=== PATIENT | male | born 1985 | race Caucasian/White ===

== ENCOUNTER 2019-05-17 14:47 | Emergency (ER) | payer OTHER, SELFPAY ==
--- OUTSIDE RECORDS SUMMARY | 2019-05-17 14:49 | XMS REPORT ---
:1985 [facility] Address [address] [place] [address] [address] Care Team Providers Name Role Phone ANA MARÍA MEJIA Unavailable Unavailable Problems This patient has no known problems. Allergies, Adverse Reactions, Alerts This patient has no known allergies or adverse reactions. Medications This patient has no known medications. Encounters Start End Encounter Admission Attending Care Care Encounter Date/Time Date/Time Type Type Clinicians Facility Department ID 2017-09-27 2017-09-28 Emergency E AJAY MEJIA [facility] [id number] 23:32:00 00:40:00 ANA MARÍA
[2019-05-17] MEDS ORDERED: NA CHLORIDE 0.9% 1,000 ML ONE (15:26)
[2019-05-17 15:36] LABS: Absolute Lymphocytes (CBC) 2.3 K/uL (0.7-4.9); Basophils % 0.4 % (0-1.3); Hematocrit 44.4 % (39.6-49.0); Lymphocytes % 25.4 % (15.3-44.8); MPV 8.3 fL (7.6-11.3); Protime INR 1.06; RBC Red Blood Cell Count 5.06 M/uL (4.33-5.43)
[2019-05-17 15:49] LABS: Urine Blood NEGATIVE (NEG); Urine Glucose NEGATIVE (NEG); Urine Protein TRACE (NEG); Urine Specific Gravity 1.025 (1.005-1.030); Urine pH 5.5 (5.0-7.0)
[2019-05-17 15:55] LABS: Barbiturates NEGATIVE (NEGATIVE); Benzodiazepines POSITIVE (NEGATIVE); Cocaine NEGATIVE (NEGATIVE); METHAMPHETAM POSITIVE (NEGATIVE); Methadone NEGATIVE (NEGATIVE); Opiates NEGATIVE (NEGATIVE); Phencyclidine NEGATIVE (NEGATIVE); THC Cannibis NEGATIVE (NEGATIVE)
[2019-05-17 15:55] LABS: ALT/SGPT 33 U/L (12-78); AST/SGOT 5 U/L (15-37); Albumin 4.3 g/dL (3.4-5.0); Alkaline Phosphatase 78 U/L (45-117); BUN Blood Urea Nitrogen 19 mg/dL (7-18); Bicarbonate 30 mmol/L (21-32); Bilirubin Direct 0.2 mg/dL (0-0.2); Bilirubin Total 0.9 mg/dL (0.2-1.0); Glucose Level 107 mg/dL (74-106); Lipase 78 U/L (73-393); Magnesium 2.1 mg/dL (1.8-2.4); NT PRO-BNP 16 pg/mL (<125); Potassium 3.5 mmol/L (3.5-5.1); Sodium Level 138 mmol/L (136-145); Troponin (Emerg Dept Use Only) < 0.02 ng/mL (0.0-0.045)
--- NOTE | 2019-05-17 16:33 | RAD REPORT ---
EXAM DESCRIPTION: RAD - Chest Single View - 05/17/2019 3:48 pm CLINICAL HISTORY: COUGH Chest pain. COMPARISON: Chest Pa And Lat (2 Views) dated 11/04/2016; Chest Single View dated 10/24/2016 FINDINGS: Portable technique limits examination quality. The lungs are grossly clear. The heart is normal in size. No displaced fractures. IMPRESSION: No acute intrathoracic process suspected.
--- NOTE | 2019-05-17 17:02 | EDPHYS ---
Physician Documentation [facility] Name: Leon Cordero Age: 34 yrs Sex: Male : 1985 Arrival Date: 05/17/2019 Time: 14:54 Bed 27 Private MD: ED Physician Odell Beckman HPI: 05/17 16:58 This 34 yrs old Male presents to ER via [employer] with complaints of ally WEAK AND DIZZY. 16:58 WEAK, DIZZY. The patient presents with dizziness, generalized weakness. Onset: The ally symptoms/episode began/occurred just prior to arrival. Context: occurred outdoors, at a park, occurred while the patient was working. Modifying factors: The symptoms are alleviated by nothing, the symptoms are aggravated by standing up. Associated signs and symptoms: The patient has no apparent associated signs or symptoms. Severity of symptoms: At their worst the symptoms were. Patient's baseline: Neuro: alert and fully oriented, Motor: no deficits. Historical: - Allergies: 14:58 No Known Allergies; rv - Home Meds: 14:58 albuterol sulfate 90 mcg/actuation Inhl HFAA every 4 hours for Acute Asthma Attack rv [Active]; - PMHx: 14:58 Asthma; heart atack; rv - PSHx: 14:58 None; rv - Immunization history:: Adult Immunizations unknown. - Social history:: Smoking status: Patient uses tobacco products, smokes one-half pack cigarettes per day. - Ebola Screening: : No symptoms or risks identified at this time. - Family history:: not pertinent. ROS: 16:58 Constitutional: Negative for fever, chills, and weight loss, Eyes: Negative for injury, ally pain, redness, and discharge, ENT: Negative for injury, pain, and discharge, Neck: Negative for injury, pain, and swelling, Cardiovascular: Negative for chest pain, palpitations, and edema, Respiratory: Negative for shortness of breath, cough, wheezing, and pleuritic chest pain, Abdomen/GI: Negative for abdominal pain, nausea, vomiting, diarrhea, and constipation, Back: Negative for injury and pain, : Negative for injury, bleeding, discharge, and swelling, MS/Extremity: Negative for injury and deformity, Skin: Negative for injury, rash, and discoloration, Psych: Negative for depression, anxiety, suicide ideation, homicidal ideation, and hallucinations, Allergy/Immunology: Negative for hives, rash, and allergies, Endocrine: Negative for neck swelling, polydipsia, polyuria, polyphagia, and marked weight changes, Hematologic/Lymphatic: Negative for swollen nodes, abnormal bleeding, and unusual bruising. 16:58 Neuro: Positive for dizziness, weakness. Exam: 16:58 Constitutional: This is a well developed, well nourished patient who is awake, alert, ally and in no acute distress. Head/Face: Normocephalic, atraumatic. Eyes: Pupils equal round and reactive to light, extra-ocular motions intact. Lids and lashes normal. Conjunctiva and sclera are non-icteric and not injected. Cornea within normal limits. Periorbital areas with no swelling, redness, or edema. ENT: Nares patent. No nasal discharge, no septal abnormalities noted. Tympanic membranes are normal and external auditory canals are clear. Oropharynx with no redness, swelling, or masses, exudates, or evidence of obstruction, uvula midline. Mucous membranes moist. Neck: Trachea midline, no thyromegaly or masses palpated, and no cervical lymphadenopathy. Supple, full range of motion without nuchal rigidity, or vertebral point tenderness. No Meningismus. Chest/axilla: Normal chest wall appearance and motion. Nontender with no deformity. No lesions are appreciated. Cardiovascular: Regular rate and rhythm with a normal S1 and S2. No gallops, murmurs, or rubs. Normal PMI, no JVD. No pulse deficits. Respiratory: Lungs have equal breath sounds bilaterally, clear to auscultation and percussion. No rales, rhonchi or wheezes noted. No increased work of breathing, no retractions or nasal flaring. Abdomen/GI: Soft, non-tender, with normal bowel sounds. No distension or tympany. No guarding or rebound. No evidence of tenderness throughout. Back: No spinal tenderness. No costovertebral tenderness. Full range of motion. Male : Normal genitalia with no discharge or lesions. Skin: Warm, dry with normal turgor. Normal color with no rashes, no lesions, and no evidence of cellulitis. MS/ Extremity: Pulses equal, no cyanosis. Neurovascular intact. Full, normal range of motion. Neuro: Awake and alert, GCS 15, oriented to person, place, time, and situation. Cranial nerves II-XII grossly intact. Motor strength 5/5 in all extremities. Sensory grossly intact. Cerebellar exam normal. Normal gait. Psych: Awake, alert, with orientation to person, place and time. Behavior, mood, and affect are within normal limits. 16:58 Musculoskeletal/extremity: DVT Exam: No signs of deep vein thrombosis. no pain, no swelling, no tenderness, negative Homans' sign noted on exam, no appreciated bluish discoloration, no erythema, no increased warmth. Vital Signs: 14:56 BP 134 / 97; Pulse 96; Resp 20; Temp 98.8; Pulse Ox 98% on R/A; Weight 90.72 kg; rv 15:15 BP 147 / 88; Pulse 98; Resp 16; Pulse Ox 99% on R/A; rv 15:30 BP 142 / 97; Pulse 98; Resp 16; Pulse Ox 100% on R/A; rv 15:45 BP 138 / 92; Pulse 99; Resp 17; Pulse Ox 100% ; rv 16:00 BP 143 / 90; Pulse 94; Resp 17; Pulse Ox 100% on R/A; rv 17:00 BP 138 / 95; Pulse 91; Resp 15; Pulse Ox 100% on R/A; rv MDM: 14:55 Patient medically screened. [facility] 17:01 Data reviewed: vital signs, nurses notes, lab test result(s), EKG, radiologic studies, [facility] CT scan, plain films. 05/17 14:56 Order name: Basic Metabolic Panel [facility] 05/17 14:56 Order name: CBC with Diff 05/17 14:56 Order name: LFT's [facility] 05/17 14:56 Order name: Magnesium [facility] 05/17 14:56 Order name: NT PRO-BNP; Complete Time: 16:58 [facility] 05/17 14:56 Order name: PT-INR; Complete Time: 16:58 [facility] 05/17 14:56 Order name: Troponin (emerg Dept Use Only); Complete Time: 16:58 [facility] 05/17 14:56 Order name: Acetaminophen; Complete Time: 16:58 [facility] 05/17 14:56 Order name: ETOH Level; Complete Time: 16:58 [facility] 05/17 14:56 Order name: Ptt, Activated; Complete Time: 16:58 [facility] 05/17 14:56 Order name: Salicylate; Complete Time: 16:58 [facility] 05/17 14:56 Order name: Urine Drug Screen; Complete Time: 16:58 [facility] 05/17 14:56 Order name: Lipase; Complete Time: 16:58 [facility] 05/17 14:57 Order name: Basic Metabolic Panel; Complete Time: 16:58 EDMS 05/17 14:56 Order name: XRAY Chest (1 view); Complete Time: 16:58 [facility] 05/17 14:56 Order name: EKG; Complete Time: 14:59 [facility] 05/17 14:56 Order name: Cardiac monitoring; Complete Time: 15:23 [facility] 05/17 14:56 Order name: EKG - Nurse/Tech; Complete Time: 15:48 [facility] 05/17 14:56 Order name: IV Saline Lock; Complete Time: 15:23 [facility] 05/17 14:56 Order name: Labs collected and sent; Complete Time: 15:23 [facility] 05/17 14:56 Order name: O2 Per Protocol; Complete Time: 15:24 [facility] 05/17 14:56 Order name: O2 Sat Monitoring; Complete Time: 15:24 [facility] 05/17 14:56 Order name: Urine Dipstick-Ancillary (obtain specimen); Complete Time: 15:48 [facility] 05/17 14:57 Order name: CBC with Automated Diff; Complete Time: 16:58 EDMS 05/17 14:57 Order name: Liver (Hepatic) Function; Complete Time: 16:58 EDMS 05/17 14:57 Order name: Magnesium; Complete Time: 16:58 EDWV 05/17 15:40 Order name: Urine Dipstick--Ancillary (enter results); Complete Time: 16:58 ms Administered Medications: 15:20 Drug: NS 0.9% 1000 ml Route: IV; Rate: 1 bolus; Site: right antecubital; rv Disposition: 05/17/19 17:02 Discharged to Home. Impression: Dizziness and giddiness, Weakness. - Condition is Stable. - Discharge Instructions: Dizziness, Near-Syncope, Weakness, Near-Syncope, [id number], Weakness, [id number], Aspirin and Your Heart, Dizziness, [id number]. - Medication Reconciliation Form, Thank You Letter, Antibiotic Education, Prescription Opioid Use form. - Follow up: Private Physician; When: 2 - 3 days; Reason: Recheck today's complaints, Continuance of care, Re-evaluation by your physician. - Problem is new. - Symptoms have improved. Signatures: Dispatcher [employer] Odell Pérez MD MD cha Vicente, Ronaldo RN RN rv Corrections: (The following items were deleted from the chart) 17:43 17:02 05/17/2019 17:02 Discharged to Home. Impression: Dizziness and giddiness; rv Weakness. Condition is Stable. Forms are Medication Reconciliation Form, Thank You Letter, Antibiotic Education, Prescription Opioid Use. Follow up: Private Physician; When: 2 - 3 days; Reason: Recheck today's complaints, Continuance of care, Re-evaluation by your physician. Problem is new. Symptoms have improved. ally
--- NOTE | 2019-05-17 17:02 | ER ---
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 suddenly he felt lightheaded and weak. initial blood pressure is 155/108 and HR at 141. blood sugar is 129. no medical history. Transition of care: patient was not received from another setting of care. Onset of symptoms was May 17, 2019 at 14:00. Risk Assessment: Do you want to hurt yourself or someone else? Patient reports no desire to harm self or others. Initial Sepsis Screen: Does the patient meet any 2 criteria? No. Patient's initial sepsis screen is negative. Does the patient have a suspected source of infection? No. Patient's initial sepsis screen is negative. Care prior to arrival: None. 14:54 Method Of Arrival: Law Enforcement: [employer] rv 14:54 Acuity: SHARMIN 4 rv Historical: - Allergies: 14:58 No Known Allergies; rv - Home Meds: 14:58 albuterol sulfate 90 mcg/actuation Inhl HFAA every 4 hours for Acute Asthma Attack rv [Active]; - PMHx: 14:58 Asthma; heart atack; rv - PSHx: 14:58 None; rv - Immunization history:: Adult Immunizations unknown. - Social history:: Smoking status: Patient uses tobacco products, smokes one-half pack cigarettes per day. - Ebola Screening: : No symptoms or risks identified at this time. - Family history:: not pertinent. Screenin:11 Abuse screen: Denies threats or abuse. Denies injuries from another. Nutritional rv screening: No deficits noted. Tuberculosis screening: No symptoms or risk factors identified. Fall Risk None identified. Assessment: 16:11 General: Appears in no apparent distress. comfortable, Behavior is calm, cooperative. rv Pain: Denies pain. Neuro: Level of Consciousness is awake, alert, obeys commands, Oriented to person, place, time, situation. Cardiovascular: Patient's skin is warm and dry. Cardiovascular: Rhythm is regular. Respiratory: Airway is patent. GI: No signs and/or symptoms were reported involving the gastrointestinal system. : No signs and/or symptoms were reported regarding the genitourinary system. EENT: No signs and/or symptoms were reported regarding the EENT system. Derm: Skin is intact. Vital Signs: 14:56 BP 134 / 97; Pulse 96; Resp 20; Temp 98.8; Pulse Ox 98% on R/A; Weight 90.72 kg; rv 15:15 BP 147 / 88; Pulse 98; Resp 16; Pulse Ox 99% on R/A; rv 15:30 BP 142 / 97; Pulse 98; Resp 16; Pulse Ox 100% on R/A; rv 15:45 BP 138 / 92; Pulse 99; Resp 17; Pulse Ox 100% ; rv 16:00 BP 143 / 90; Pulse 94; Resp 17; Pulse Ox 100% on R/A; rv 17:00 BP 138 / 95; Pulse 91; Resp 15; Pulse Ox 100% on R/A; rv ED Course: 14:54 Patient arrived in ED. rv 14:55 Odell Beckman MD is Attending Physician. ally 14:56 Triage completed. rv 15:23 Lane Hernandez, GEE is Primary Nurse. rv 15:50 XRAY Chest (1 view) In Process Unspecified. EDMS 16:12 Arm band placed on left wrist. rv 16:12 Patient has correct armband on for positive identification. Bed in low position. Call rv light in reach. Side rails up X 1. quality assurance monitor on. Pulse ox on. NIBP on. 17:43 No provider procedures requiring assistance completed. Patient did not have IV access rv during this emergency room visit. Administered Medications: 15:20 Drug: NS 0.9% 1000 ml Route: IV; Rate: 1 bolus; Site: right antecubital; rv Outcome: 17:02 Discharge ordered by . ally 17:43 Discharged to home ambulatory. rv 17:43 Condition: good 17:43 Discharge instructions given to patient, Instructed on discharge instructions, follow up and referral plans. Demonstrated understanding of instructions, follow-up care. 17:43 Patient left the ED. rv Signatures: Dispatcher [employer] EDMS Odell Beckman MD MD cha Vicente, Ronaldo, RN RN rv
[2019-05-17 19:39] VITALS: TEMP 98.8
[2019-05-17 19:43] VITALS: O2SAT 100
[2019-05-17 19:52] VITALS: BP 138/95
--- NOTE | 2019-05-18 16:24 | EKG ---
Test Date: 2019-05-17 Test Time: 15:41:25 Patient Coordinator Front Desk: RV MEASUREMENT RESULTS: Intervals: Rate: 80 CT: 136 QRSD: 110 QT: 356 QTc: 410 [place]: P: 67 CT: 136 QRS: 103 T: 3 INTERPRETIVE STATEMENTS: Normal sinus rhythm Rightward axis Incomplete right bundle branch block Borderline ECG Compared to ECG 11/04/2016 20:53:32 Sinus arrhythmia no longer present Electronically Signed On 05-18-19 16:22:37 LUMP [employer] by Scot Scott
== END 2019-05-17 17:43 | disposition home or self-care (01) ==
LOC: ER 14:47
DX: R53.1 Weakness (principal); R42 Dizziness and giddiness; J45.909 Unspecified asthma, uncomplicated; F17.210 Nicotine dependence, cigarettes, uncomplicated
CPT/HCPCS: 36415; 71045; 80048; 80076; 80307; 80320; 80329; 81003; 83690; 83735; 83880; 84484; 85025; 85610; 85730; 93005; 99284; J7030

== ENCOUNTER 2022-11-11 20:18 | Emergency (ER) | payer OTHER, SELFPAY ==
--- OUTSIDE RECORDS SUMMARY | 2022-11-11 20:22 | XMS REPORT | Continuity of Care Document ---
:1985 Author Organization [facility] t Address [address] [facility] [address] [place] [address] Care Team Providers Name Role Phone Arti Mervat OROPEZA Attending Clinician Doctor Unassigned, [place] Attending Clinician Unavailable ROSS DEGROOT Attending Clinician Unavailable LUPE TOPETE Attending Clinician Unavailable Gomez Barrett Attending Clinician ANA MARÍA MEJIA Attending Clinician Unavailable ANA MARÍA MEJIA Admitting Clinician Unavailable Problems Condition Condition Condition Status Onset Resolution Last Treating Co mments Source Name Details Category Date Date Treatment Clinician Date Moderate Moderate Disease Active Unive rs asthma asthma 02-06 ity of with with 00:00: [place] exacerbati exacerbati 00 Me dical on, on, Branch unspecifie unspecifie d whether d whether persistent persistent Upper Upper Disease Active [facility] respirator respirator 02-06 it y of y tract y tract 00:00: [place] infection, infection, 00 Me dical unspecifie unspecifie Br anch d type d type Allergies, Adverse Reactions, Alerts Allergy Allergy Status Severity Reaction(s) Onset Inactive Treating Comm ents Source Name Type Date Date Clinician NO KNOWN Drug Active Univers ALLERGIE Class ity of S [facility] Social History Social Habit Start Date Stop Date Quantity Comments Source Exposure to Not sure [facility] SARS-CoV-2 (event) Medica l Branch Sex Assigned At [birth year] [facility] 00:00:00 00:00:00 Medical Branch Smoking Status Start Date Stop Date Source Unknown if ever smoked [facility] Medications Ordered Filled Start Stop Current Ordering Indication Dosage Frequency Signature Comments Components Source Medication Medication Date Date Medication? Clinician (SIG) Name Name loperamide No 4mg 4 mg, Unive rs (IMODIUM 01-04 Oral, ity of A-D) 01:30: 00:44 ONCE, 1 [place] capsule 4 00 :00 dose, Mon Medic al mg 01/03/21 at Branch 2029, Routine ketorolac 2020- No 30mg 30 mg, Unive rs (TORADOL) 01-04 Slow IV ity of injection 01:30: 00:44 Push, [place] 30 mg 00 :00 ONCE, 1 Medical dose, [facility] Branch 01/03/21 at 2030, SHARLENE
Fa culty member approving Restricted medication : Mervat GUZMAN ondansetron No 4mg 4 mg, Slow Univers (ZOFRAN 01-04 IV Push, ity of (PF)) 01:30: 00:44 ONCE, 1 [place] injection 4 00 :00 dose, Mon Med ical mg 01/03/21 at Branch 2029, SHARLENE NaCl 0.9% 2020- No 1000mL at 999 Uni vers (NS) bolus 01-04 mL/hr, ity of infusion 01:00: 01:00 1,000 mL, Jimi as 1,000 mL 00 :00 IV Medical Infusion, [place] ONCE, 1 dose, [facility] 01/03/21 at 2000, STAT ibuprofen Yes [id number] 600mg Take 1 Univers 600 mg 8-02 tablet by ity of tablet 00:00: mouth [place] 00 every 6 Medical (six) Branch hours as needed for Pain (scale 4-6). benzonatate Yes [id number] 100mg Take 1 Univers 100 mg 8-02 capsule by ity of capsule 00:00: mouth 3 [place] 00 (three) Medical times Branch daily as needed for Cough. ondansetron 0 Yes [id number] 4mg Take 1 Univers (ZOFRAN 8-02 tablet by ity of ODT) 4 mg 00:00: mouth [place] disintegrat 00 every 8 Medic al ing tablet (eight) Branch hours as needed for Nausea and Vomiting (N/V). ciprofloxac 2020- No 3[drp] 3 Drop, Univers in-hydrocor 12-12 Right Ear, i ty of tisone 02:30: 02:10 ONCE, 1 [place] (CIPRO HC 00 :00 dose, Sat Medic al OTIC) otic 12/11/20 at [facility] suspension 2130, 3 Drop Routine ciprofloxac 2020- No [id number] 3[drp] Place 3 Univers in-hydrocor 12-1118 [id number] Drops in i ty of tisone 00:00: 04:59 right ear [place] (CIPRO HC) 00 :00 2 (two) Medica l otic times Branch suspension daily for 7 days. albuterol Yes [id number] 2.5mg Inhale 3 Univers 2.5 mg /3 5-31 mL every 4 ity of mL (0.083 00:00: (four) [place] %) 00 hours. May Medical nebulizer also Branch solution nebulize one extra every 6 hours. albuterol Yes [id number] 2{puff} Inhale 2 Univers 90 5-31 Puffs ity of mcg/actuati 00:00: every 4 Jimi as on inhaler 00 (four) Medical hours as Branch needed for Wheezing or Shortness of Breath. benzonatate Yes [id number] 200mg Take 1 Univers 200 mg 5-31 capsule by ity of capsule 00:00: mouth 3 [place] 00 (three) Medical times Branch daily as needed for Cough. predniSONE Yes [id number] 50mg Take 1 Univers 50 mg 5-31 tablet by ity of tablet 00:00: mouth [place] 00 daily. Medical Branch albuterol Yes [id number] 2.5mg Inhale 3 Univers 2.5 mg /3 5-31 mL every 4 ity of mL (0.083 00:00: (four) [place] %) 00 hours. May Medical nebulizer also Branch solution nebulize one extra every 6 hours. albuterol Yes [id number] 2{puff} Inhale 2 Univers 90 5-31 Puffs ity of mcg/actuati 00:00: every 4 [place] as on inhaler 00 (four) Medical hours as Branch needed for Wheezing or Shortness of Breath. benzonatate Yes [id number] 200mg Take 1 Univers 200 mg 5-31 capsule by ity of capsule 00:00: mouth 3 [place] 00 (three) Medical times Branch daily as needed for Cough. predniSONE Yes [id number] 50mg Take 1 Univers 50 mg 5-31 tablet by ity of tablet 00:00: mouth [place] 00 daily. Medical Branch albuterol Yes [id number] 2.5mg Inhale 3 Univers 2.5 mg /3 5-31 mL every 4 ity of mL (0.083 00:00: (four) [place] %) 00 hours. May Medical nebulizer also Branch solution nebulize one extra every 6 hours. albuterol Yes [id number] 2{puff} Inhale 2 Univers 90 5-31 Puffs ity of mcg/actuati 00:00: every 4 Jim[place] as on inhaler 00 (four) Medical hours as Branch needed for Wheezing or Shortness of Breath. predniSONE Yes [id number] 50mg Take 1 Univers 50 mg 5-31 tablet by ity of tablet 00:00: mouth [place] 00 daily. Medical Branch benzonatate 2020- No [id number] 200mg Take 1 Univers 200 mg 5-31 08-02 capsule by ity of capsule 00:00: 00:00 mouth 3 [place] 00 :00 (three) Medical times Branch daily as needed for Cough. albuterol Yes [id number] 2{puff} Inhale 2 Univers 90 5-13 Puffs ity of mcg/actuati 00:00: every 4 Jimi as on inhaler 00 (four) Medical hours as Branch needed for Wheezing or Shortness of Breath. albuterol Yes [id number] 2.5mg Inhale 3 Univers 2.5 mg /3 5-13 mL every 4 ity of mL (0.083 00:00: (four) [place] %) 00 hours as Medical nebulizer needed for Bran ch solution Wheezing or Shortness of Breath. May also nebulize one extra every 6 hours. albuterol Yes [id number] 2{puff} Inhale 2 Univers 90 5-13 Puffs ity of mcg/actuati 00:00: every 4 Jimi as on inhaler 00 (four) Medical hours as Branch needed for Wheezing or Shortness of Breath. albuterol Yes [id number] 2.5mg Inhale 3 Univers 2.5 mg /3 5-13 mL every 4 ity of mL (0.083 00:00: (four) [place] %) 00 hours as Medical nebulizer needed for Bran ch solution Wheezing or Shortness of Breath. May also nebulize one extra every 6 hours. albuterol 2018-0 Yes [id number] 2{puff} Inhale 2 Univers 90 5-13 Puffs ity of mcg/actuati 00:00: every 4 Jimi as on inhaler 00 (four) Medical hours as Branch needed for Wheezing or Shortness of Breath. albuterol 2018-0 Yes [id number] 2.5mg Inhale 3 Univers 2.5 mg /3 5-13 mL every 4 ity of mL (0.083 00:00: (four) [place] %) 00 hours as Medical nebulizer needed for Bran ch solution Wheezing or Shortness of Breath. May also nebulize one extra every 6 hours. albuterol 2017-0 Yes 2.5mg Inhale 3 Uni vers 2.5 mg /3 9-05 mL every 4 ity of mL (0.083 00:00: (four) [place] %) 00 hours as Medical nebulizer needed for Bran ch solution Wheezing or Shortness of Breath. albuterol 2017-0 Yes 2.5mg Inhale 3 Uni vers 2.5 mg /3 9-05 mL every 4 ity of mL (0.083 00:00: (four) [place] %) 00 hours as Medical nebulizer needed for Bran ch solution Wheezing or Shortness of Breath. albuterol 0 Yes 2.5mg Inhale 3 Uni vers 2.5 mg /3 9-05 mL every 4 ity of mL (0.083 00:00: (four) [place] %) 00 hours as Medical nebulizer needed for Bran ch solution Wheezing or Shortness of Breath. Vital Signs Vital Name Observation Time Observation Value Comments Source Oxygen saturation in 2021-01-04 00:50:00 95 /min [facility] Arterial blood by [facility] Pulse oximetry Branch Systolic blood 2021-01-04 00:50:00 130 mm[Hg] Univer sity of pressure [facility] Diastolic blood 2021-01-04 00:50:00 83 mm[facility]Hg] [facility] Heart rate 2021-01-04 00:50:00 71 /min Universi ty [facility] Body temperature 2021-01-04 00:50:00 37.17 [place] [facility] Respiratory rate 2021-01-04 00:50:00 12 /min [facility] Body weight 2021-01-03 22:44:00 79.379 kg Universi ty [facility] BMI 2021-01-03 22:44:00 27.41 kg/m2 Universi ty [facility] Systolic blood 2020-12-12 02:00:00 139 mm[Hg] Univer sity of [facility] Diastolic blood 2020-12-12 02:00:00 87 mm[Hg] Unive rsity of [facility] Heart rate 2020-12-12 02:00:00 80 /min [facility] Body temperature 2020-12-12 02:00:00 37.11 [place] [facility] Respiratory rate 2020-12-12 02:00:00 15 /min [facility] Oxygen saturation in 2020-12-12 02:00:00 98 /min [facility] Arterial blood by [facility] Pulse oximetry Branch Body weight 2020-12-12 00:29:00 79.379 kg [facility] BMI 2020-12-12 00:29:00 27.41 kg/m2 [facility] Procedures Procedure Date / Time Performed Performing Clinician Sourc e LIPASE 2021-01-03 23:50:00 Mervat Guzman [facility] o f [facility] COMP. METABOLIC PANEL 2021-01-03 23:50:[address] [facility] ([id number]) Medical [place] CBC WITH DIFF 2021-01-03 23:50:00 Mervat Guzman [facility] o f [facility] NOTICE OF PRIVACY 2021-01-03 22:40:16 Doctor Unassigned, No [facility] Name Medical Branch CONSENT/REFUSAL FOR 2021-01-03 22:39:56 Doctor Unassigned, No [facility] AND Name Medical Branch TREATMENT COVID-19 (ID NOW 2020-12-12 01:21:00 Gomez Reyes [facility] RAPID TESTING) Medical Branch Encounters Start End Encounter Admission Attending Care Care Encounter Source Date/Time Date/Time Type Type Clinicians Facility Department ID 2021-04-[address] [facility] [id number] Univers 12:35:38 ity [facility] 2022-11-02 2022-11-02 Outpatient SFA SFA [id number] Srinath 17:28:41 17:28:41 0601 F Emmons 2022-10-05 2022-10-05 Outpatient SFA SFA [id number] Srinath 17:09:06 17:09:06 0504 F Emmons 2022-08-31 2022-08-31 Outpatient SFA SFA [id number] Srinath 17:42:00 17:42:00 0330 [facility] 2022-08-09 2022-08-09 Outpatient SFA SFA [id number] Srinath 17:32:23 17:32:23 0308 F Emmons 2022-07-12 2022-07-12 Outpatient SFA SFA [id number] Srinath 17:46:55 17:46:55 0208 [facility] 2022-06-12 2022-06-12 Outpatient SFA SFA [id number] Srinath 17:24:02 17:24:02 0109 [facility] 2022-05-12 2022-05-12 Outpatient SFA SFA [id number] Srinath 15:20:41 15:20:41 1209 [facility] 2022-04-11 2022-04-11 Outpatient SFA SFA [id number] Srinath 15:55:41 15:55:41 1108 [facility] 2022-03-09 2022-03-09 Outpatient SFA SFA [id number] Srinath 16:16:28 16:16:28 1006 F Emmons 2021-01-03 2021-01-03 Emergency Mervat Guzman [facility] [id number] Univers 17:45:00 20:02:00 Emy Paz 350.1.13.10 i Toby 4.2.7.2.686 [facility] [id number] [facility] 084 Branch 2021-01-03 2021-01-03 Orders Doctor SANABRIA [id number] Univers 00:00:00 00:00:00 Only Unassigned, CORY 350.1.13.10 ity of [place] [facility] 4.2.7.2.686 Jimi [id number] [facility] 009 Branch 2020-12-16 2020-12-16 Outpatient R ZANE, [facility] [id number] Univers 15:45:00 15:45:00 ROSS ity [facility] 2020-12-15 2020-12-15 Outpatient R EFREM, [facility] [id number] Univers 15:15:00 15:15:00 [facility] 2020-12[facility]11 2020-12-11 Emergency Amy, [facility] [id number] Univers 19:27:00 21:50:00 Gomez Paz 350.1.13.10 i ty of [place] 4.2.7.2.686 [place] [id number] [facility] 084 Branch 2020-12-11 2020-12-11 Emergency X [facility] ERT [id number] Univers 19:20:00 19:20:00 [facility] 2017-09-27 2017-09-28 Emergency E MEJIA, [facility] [id number] [place] 23:32:00 00:40:00 ANA MARÍA [facility] Results Test Description Test Time Test Comments Results Result Comments Source CBC WITH DIFF 2021-01-04 01:02:22 Test Item Value Reference Range Interpretation Comme nts WBC (test code = 6690-2) See_Comment [A utomated message] The system which ge nerated this result transmit tay reference range: 4.20 - 1 0.70 10*3/?L. The reference r herb was not used to interpr et this result as normal/abnor mal. RBC (test code = 789-8) See_Comment [Au tomated message] The system which Navmii nerated this result transmit tay reference range: 4.26 - 5 .52 10*6/?L. The reference r herb was not used to interpr et this result as normal/abnor mal. HGB (test code = 718-7) 14.3 g/dL 12.2-16.4 HCT (test code = 4544-3) 43.1 % 38.4-49.3 MCV (test code = 787-2) 85.9 fL 81.7-95.6 MCH (test code = 785-6) 28.5 pg 26.1-32.7 MCHC (test code = 786-4) 33.2 g/dL 31.2-35.0 RDW-SD (test code = 09241-0) 40.1 fL 38.5-51.6 RDW-CV (test code = 788-0) 12.9 % 12.1-15.4 PLT (test code = 777-3) See_Comment H [Au tomated message] The system which ge nerated this result transmit tay reference range: 150 - 32 8 10*3/?L. The reference range was not used to interpret th is result as normal/abnormal . MPV (test code = 81641-8) 9.5 fL 9.8-13.0 L NRBC/100 WBC (test code = See_Comment [ Automated message] The 7589495502) system which ge nerated this result transmit tay reference range: 0.0 - 10 .0 /100 WBCs. The reference r herb was not used to interpr et this result as normal/abnor mal. NRBC x10^3 (test code = <0.01 See_Comment [Au tomated message] The 0097144991) system which ge nerated this result transmit tay reference range: 10*3/?L. The reference range was not u sed to interpret this result as normal/abnormal . GRAN MAT (NEUT) % (test code 49.9 % = 770-8) IMM GRAN % (test code = 0.40 % 0451896827) LYMPH % (test code = 736-9) 33.8 % MONO % (test code = 5905-5) 13.1 % EOS % (test code = 713-8) 2.4 % BASO % (test code = 706-2) 0.4 % GRAN MAT x10^3(ANC) (test 3.38 10*3/uL 1.99-6.95 code = 7405470429) IMM GRAN x10^3 (test code = 0.03 10*3/uL 0.00-0.06 2287577421) LYMPH x10^3 (test code = 2.29 10*3/uL 1.09-3.23 731-0) MONO x10^3 (test code = 0.89 10*3/uL 0.36-1.02 742-7) EOS x10^3 (test code = 0.16 10*3/uL 0.06-0.53 711-2) BASO x10^3 (test code = 0.03 10*3/uL 0.01-0.09 704-7) Lab Interpretation (test Abnormal code = 33225-4) [facility] (66227)2021-01-04 00:13:15 Test Item Value Reference Range Interpretation Comments NA (test code = 142 mmol/L 135-145 1857540415) K (test code = 3.9 mmol/L 3.5-5.0 3079930632) CL (test code = 104 mmol/L 98-108 2101524901) CO2 TOTAL (test code 28 mmol/L 23-31 = 4775614249) AGAP (test code = 2-16 2419000934) BUN (test code = 9 mg/dL 7-23 4128659100) GLUCOSE (test code = 95 mg/dL 70-110 3599479994) CREATININE (test code 0.73 mg/dL 0.60-1.25 = 9599818907) TOTAL BILI (test code 0.4 mg/dL 0.1-1.1 = 6578765300) CALCIUM (test code = 9.9 mg/dL 8.6-10.6 5794828044) T PROTEIN (test code 8.2 g/dL 6.3-8.2 = 9795793519) ALBUMIN (test code = 4.5 g/dL 3.5-5.0 7690426539) ALK PHOS (test code = 72 U/L 34-122 8662399961) ALTv (test code = 13 U/L 5-50 1742-6) AST(SGOT) (test code 19 U/L 13-40 = 6373091568) eGFR (test code = mL/min/1.73m2 0257472095) HARPREET (test code = HARPREET) Association of Glomerular Filtration Rate (GFR) and Staging of Kidney Disease* + + +- +| GFR (mL/min/1.73 m2) ?| With Kidney Damage ?| ?Without Kidney Damage+ ------+ ----+ ------+| ?>90 ?| ?Stage one ?| ? Normal ?+ -+ + -+| ?60-89 ?| ?Stage two ?| ? Decreased GFR ? + + +- +| ?30-59 ?| ?Stage three ?| ? Stage three ? + + +- +| ?15-29 ?| ?Stage four ? | ? Stage four ?+ -+ + -+| ?<15 (or dialysis) ? ?| ?Stage five ? | ? Stage five ?+ -+ + -+ *Each stage assumes the associated GFR level has been in effect for at least three months. ?Stages 1 to 5, with or without kidney disease, indicate chronic kidney disease. Notes: Determination of stages one and two (with eGFR >59mL/min/1.73 m2) requires estimation of kidney damage for at least three months as defined by structural or functional abnormalities of the kidney, manifested by either:Pathological abnormalities or Markers of kidney damage (including abnormalities in the composition of the blood or urine or abnormalities in imaging tests). [facility] 00:12:51 Test Item Value Reference Range Interpretation Comments LIPASE (test code = 6836679401) 32 U/L 0-220 Lab Interpretation (test code = Normal 95716-2) [facility] (ID NOW RAPID TESTING)2020-12-12 02:03:19 Test Item Value Reference Range Interpretation Comments SARS-CoV-2 Rapid ID NOW Not Detected Not Detected (test code = 28928-4) HARPREET (test code = HARPREET) ID NOW COVID-19 Assay is an isothermal nucleic acid amplification test intended for the qualitative detection of nucleic acid from SARS-CoV-2 viral RNA in nasopharyngeal (BREAD PACKER) specimens. It is used under Emergency Use Authorization (EUA) by FDA. The limit of detection (LOD) of the assay is 125 Genome Equivalents/mL. A positive result is indicative of the presence of SARS-CoV-2 RNA. ?Clinical correlation with patient history and other diagnostic information is necessary to determine patient infection status. A negative (Not Detected) result does not preclude SARS-CoV-2 infection. In patients with clinical symptoms and other tests that are consistent with SARS-CoV-2 infection, negative results should be treated as presumptive negative and a new specimen should be tested with alternative PCR molecular test. Invalid: Please collect a new specimen for repeat patient testing if clinically indicated. Lab Interpretation Normal (test code = 86241-7) [facility]"
[2022-11-11] MEDS ORDERED: TETANUS & DIPHTHERIA TOX,ADULT 0.5 ML VIAL ONE (21:36)
[2022-11-11] MEDS ORDERED: LIDOCAINE 2% MPF 5 ML VIAL ONE (21:36)
--- NOTE | 2022-11-11 22:19 | ER ---
Nurse's Notes [facility] Name: Leon Cordero Age: 37 yrs Sex: Male : 1985 Arrival Date: 11/11/2022 Time: 20:18 Bed 6 Private MD: Diagnosis: Laceration without foreign body of finger without damage to nail Presentation: 11/11 20:41 Chief complaint: Patient states: i was cutting kirk with a razor blade and it lg3 slipped and got my left thumb. Coronavirus screen: Client denies travel out of the [place] in the last 14 days. At this time, the client does not indicate any symptoms associated with coronavirus-19. Ebola Screen: No symptoms or risks identified at this time. Initial Sepsis Screen: Does the patient meet any 2 criteria? No. Patient's initial sepsis screen is negative. Does the patient have a suspected source of infection? No. Patient's initial sepsis screen is negative. Risk Assessment: Do you want to hurt yourself or someone else? Patient reports no desire to harm self or others. Onset of symptoms was November 11, 2022. 20:41 Method Of Arrival: Ambulatory lg3 20:41 Acuity: SHARMIN 4 lg3 Triage Assessment: 20:46 General: Appears in no apparent distress. comfortable, Behavior is calm, cooperative. lg3 Pain: Complains of pain in left thumb. EENT: No deficits noted. No signs and/or symptoms were reported regarding the EENT system. Neuro: No deficits noted. Logan Agitation-Sedation Scale (RASS): 0 - Alert and Calm Level of Consciousness is awake, alert, obeys commands, Oriented to person, place, time, situation, Ear Machine Operator are equal bilaterally. Cardiovascular: No deficits noted. Denies chest pain, shortness of breath. Respiratory: No deficits noted. Airway is patent Respiratory effort is even, unlabored, Respiratory pattern is regular, symmetrical. GI: No deficits noted. No signs and/or symptoms were reported involving the gastrointestinal system. : No deficits noted. Derm: Wound noted left thumb. Musculoskeletal: No deficits noted. No signs and/or symptoms reported regarding the musculoskeletal system. Circulation, motion, and sensation intact. Range of motion: intact in all extremities. Injury Description: Laceration sustained to left thumb. Historical: - Allergies: 20:44 No Known Allergies; lg3 - Home Meds: 20:44 albuterol sulfate 90 mcg/actuation Inhl HFAA every 4 hours for Acute Asthma Attack lg3 [Active]; - PMHx: 20:44 Asthma; heart atack; lg3 - PSHx: 20:44 None; lg3 - Immunization history:: Last tetanus immunization: unknown. - Social history:: Smoking status: Patient reports the use of cigarette tobacco products, smokes one-half pack cigarettes per day, Patient uses alcohol, occasionally. street drugs, cocaine. Screenin:53 [facility] ED Fall Risk Assessment (Adult) History of falling in the last 3 months, jb4 including since admission No falls in past 3 months (0 pts) Confusion or Disorientation No (0 pts) Score/Fall Risk Level 0 - 2 = Low Risk Oriented to surroundings, Maintained a safe environment. Abuse screen: Denies threats or abuse. Nutritional screening: No deficits noted. Tuberculosis screening: No symptoms or risk factors identified. Assessment: 21:30 General: Appears in no apparent distress. comfortable, Behavior is calm, cooperative, jb4 appropriate for age. Pain: Denies pain. Neuro: Level of Consciousness is awake, alert, obeys commands, Oriented to person, place, time, situation. Cardiovascular: Patient's skin is warm and dry. Respiratory: Airway is patent Respiratory effort is even, unlabored, Respiratory pattern is regular, symmetrical. GI: No signs and/or symptoms were reported involving the gastrointestinal system. : No signs and/or symptoms were reported regarding the genitourinary system. EENT: No signs and/or symptoms were reported regarding the EENT system. Derm: Skin is pink, warm \T\ dry. Musculoskeletal: Circulation, motion, and sensation intact. Injury Description: Laceration sustained to dorsal aspect of proximal phalanx of left thumb is clean, 0.5 to 2.5 cm long. Vital Signs: 20:41 BP 150 / 89; Pulse 85; Resp 17 S; Temp 97.6(O); Pulse Ox 98% on R/A; Weight 81.65 kg lg3 (R); Height 5 ft. 9 in. (R); 20:41 Body Mass Index 26.58 (81.65 kg, 175.26 cm) lg3 ED Course: 20:24 Patient arrived in ED. bp1 20:44 Triage completed. lg3 20:46 Arm band placed on right wrist. lg3 20:49 Shree Eduardo MD is Attending Physician. bs3 21:21 Lane Hernandez, RN is Primary Nurse. rv 21:53 Patient has correct armband on for positive identification. Bed in low position. Call jb4 light in reach. Side rails up X 1. 21:53 Assist provider with laceration repair on left thumb that was 2.5 cm. or less using jb4 sutures. Set up tray. Performed by Shree Eduardo MD Patient tolerated well. 22:42 Patient did not have IV access during this emergency room visit. jb4 Administered Medications: 21:35 Drug: Tetanus-Diphtheria Toxoid IM Adult 0.5 ml {Director Of Vital Statistics: BasharJobs. Exp: jb4 11/12/2023. Lot #: [id number]. } Route: IM; Site: right deltoid; 22:41 Follow up: Response: No adverse reaction jb4 21:47 Drug: Lidocaine Infiltration (2 %) 5 ml {Note: administered by ER physician..} Volume: jb4 5 ml; Route: Infiltration; Medication: 21:57 Vaccine Information Statement (VIS) provided today. Questions and/or concerns jb4 addressed. VIS edition date: January 07, 2023. Outcome: 22:19 Discharge ordered by . bs3 22:41 Discharged to home ambulatory. jb4 22:41 Condition: stable 22:41 Discharge instructions given to Pt left prior to signing discharge packet. Verbalized understanding of D/c and follow up when speaking with provider. 22:42 Patient left the ED. jb4 Signatures: Osman Nicole RN RN jb4 Lane Hernandez, RN Marian Ratliff RN RN lg3 Katarina Moss [facility] Shree Eduardo MD MD bs3 Corrections: (The following items were deleted from the chart) 21:47 21:47 Lidocaine Infiltration (2 %) 5 ml 5 ml Infiltration jb4 jb4
--- NOTE | 2022-11-11 22:19 | EDPHYS ---
Physician Documentation [facility] Name: Leon Cordero Age: 37 yrs Sex: Male : 1985 Arrival Date: 11/11/2022 Time: 20:18 Bed 6 Private MD: ED Physician Shree Eduardo HPI: 11/11 22:16 This 37 yrs old Male presents to ER via Ambulatory with complaints of Thumb bs3 Injury. 22:16 37-year-old thayer presents with a left thumb laceration that occurred approximately bs3 2 PM today he cleaned it with Betadine and then eventually came into the hospital he denies numbness tingling or weakness nothing else is bothering him this is never happened before unknown last tetanus shot. Historical: - Allergies: 20:44 No Known Allergies; lg3 - Home Meds: 20:44 albuterol sulfate 90 mcg/actuation Inhl HFAA every 4 hours for Acute Asthma Attack lg3 [Active]; - PMHx: 20:44 Asthma; heart atack; lg3 - PSHx: 20:44 None; lg3 - Immunization history:: Last tetanus immunization: unknown. - Social history:: Smoking status: Patient reports the use of cigarette tobacco products, smokes one-half pack cigarettes per day, Patient uses alcohol, occasionally. street drugs, cocaine. ROS: 22:16 Constitutional: Negative for fever, chills bs3 22:16 All other systems are negative. Exam: 22:16 Constitutional: This is a well developed, well nourished patient who is awake, alert, bs3 and in no acute distress. Head/Face: Normocephalic, atraumatic. Eyes: Pupils equal round and reactive to light, extra-ocular motions intact. Lids and lashes normal. ENT: mmm, no posterior phyarngeal erythema Neck: Trachea midline, no thyromegaly, no neck stiffness Chest/axilla: Normal chest wall appearance and motion. Nontender with no deformity. No lesions are appreciated. MS/ Extremity: He has a 2.5 cm laceration to the dorsum of his left thumb no visible tendon Vital Signs: 20:41 BP 150 / 89; Pulse 85; Resp 17 S; Temp 97.6(O); Pulse Ox 98% on R/A; Weight 81.65 kg lg3 (R); Height 5 ft. 9 in. (R); 20:41 Body Mass Index 26.58 (81.65 kg, 175.26 cm) lg3 Laceration: 22:16 Wound Repair of 2.5cm ( 1.0in ) subcutaneous laceration to left hand. Distal bs3 neuro/vascular/tendon intact. Anesthesia: Local anesthetic administered with 4 mls of 2% lidocaine. Wound prep: Moderate cleansing with betadine, Wound irrigation with saline by wy, Copious irrigation. Skin closed with 5 4-0 Prolene using simple sutures and sterile technique. Dressed with bandaid. Patient tolerated well. MDM: 20:49 Patient medically screened. bs3 22:16 Differential diagnosis: Patient with uncomplicated laceration there is no tendon bs3 involvement it was cleaned and repaired discharged home advised return in 12 to 14 days for suture removal. Data reviewed: vital signs, nurses notes. Administered Medications: 21:35 Drug: Tetanus-Diphtheria Toxoid IM Adult 0.5 ml {Mantel Craftsman: Reissued. Exp: jb4 11/12/2023. Lot #: [id number]. } Route: IM; Site: right deltoid; 22:41 Follow up: Response: No adverse reaction jb4 21:47 Drug: Lidocaine Infiltration (2 %) 5 ml {Note: administered by ER physician..} Volume: jb4 5 ml; Route: Infiltration; Disposition Summary: 11/11/22 22:19 Discharge Ordered Location: Home bs3 Problem: new bs3 Symptoms: have improved bs3 Condition: Stable bs3 Diagnosis - Laceration without foreign body of finger without damage to nail bs3 Followup: bs3 - With: Private Physician - When: 10 - 14 days - Reason: Re-evaluation by your physician Followup: bs3 - With: Emergency Department - When: 10 - 14 days - Reason: Re-evaluation by your physician Discharge Instructions: - Discharge Summary Sheet bs3 - Laceration Care, Adult, [id number] bs3 Forms: - Medication Reconciliation Form bs3 - Thank You Letter bs3 - Antibiotic Education bs3 - Prescription Opioid Use bs3 Signatures: Osman Nicole RN RN jb4 Marian Dexter RN RN lg3 Shree Eduardo MD MD bs3
[2022-11-11 23:31] VITALS: BP 150/89; TEMP 97.6; O2SAT 98
== END 2022-11-11 22:42 | disposition home or self-care (01) ==
LOC: ER 20:18
PROC: 0HQGXZZ Repair Left Hand Skin, External Approach (ICD-10-PCS; principal; 2022-11-11)
DX: S61.012A Laceration without foreign body of left thumb without damage to nail, initial encounter (principal); Z23 Encounter for immunization
CPT/HCPCS: 90471; 90714; 99284; J2001